=== PATIENT | male | born 1960 | race Asian ===

== ENCOUNTER 2016-12-27 07:04 | Outpatient (CLI) | payer OTHER ==
[~2016-12-27 07:04] MED LIST: AMLODIPINE; ASPIRIN81 M1 PO; BIAXIN500 MG PO; HTN MED?; LIPITOR10 MG PO; NORVASC10 MG PO
== END 2016-12-27 18:05 | disposition home or self-care (01) ==
LOC: MLB 07:04
PROVIDERS: ATTEND Internal Medicine Geriatric Medicine
DX: Z00.00 Encounter for general adult medical examination without abnormal findings (principal)

== ENCOUNTER 2017-05-04 06:23 | Outpatient (CLI) | payer OTHER ==
[~2017-05-04 06:23] MED LIST changes: +AMLO10TA PO; +ASPI81CT89 PO; -ASPIRIN81 M1 PO; +ATOR10TA PO; -BIAXIN500 MG PO; -HTN MED?; -LIPITOR10 MG PO; -NORVASC10 MG PO
[2017-05-04 07:04] LABS: BASOPHILS # (AUTO) 0.2 K/uL (0.00-0.22); EOSINOPHILS # (AUTO) 0.3 K/uL (0-0.4); EOSINOPHILS % (AUTO) 2.8 % (0.0-4.0); HEMOGLOBIN 14.7 g/dL (12.0-18.0); LYMPHOCYTES # (AUTO) 2.5 K/uL (2.0-11.5); LYMPHOCYTES % (AUTO) 20.9 % (20.5-51.1); MEAN CORPUSCULAR HEMOGLOBIN 30 pg (27-31); MEAN CORPUSCULAR HGB CONC 33 g/dL (33-37); MEAN CORPUSCULAR VOLUME 93 fL (80-94); MONOCYTES # (AUTO) 0.7 K/uL (0.8-1.0); MONOCYTES % (AUTO) 5.6 % (1.7-9.3); NEUTROPHILS # (AUTO) 8.2 K/uL (1.8-7.7); NEUTROPHILS % (AUTO) 68.7 % (42.2-75.2); PLATELET COUNT (AUTO) 283 K/uL (140-450); RED BLOOD CELL COUNT(AUTO) 4.85 MIL/uL (4.20-6.10); RED CELL DISTRIBUTION WIDTH 13.9 % (11.6-13.7); WHITE BLOOD COUNT (AUTO) 11.9 K/uL (4.8-10.8)
[2017-05-04 08:05] LABS: ALBUMIN 3.5 g/dL (3.4-5.0); ANION GAP 8.4 (8-16); CALCIUM 8.7 mg/dL (8.5-10.1); CARBON DIOXIDE 29.9 mmol/L (21-32); CHOL/HDL RATIO 3.9 (1-4.5); CREATININE 0.8 mg/dL (0.7-1.3); POTASSIUM 4.3 mmol/L (3.5-5.1); TOTAL BILIRUBIN 0.3 mg/dL (0.0-1.0); TOTAL PROTEIN, SERUM 7.1 g/dL (6.4-8.2)
== END 2017-05-04 20:17 | disposition home or self-care (01) ==
LOC: MLB 06:23
PROVIDERS: ATTEND Internal Medicine Geriatric Medicine
DX: I10 Essential (primary) hypertension (principal); R06.02 Shortness of breath; R63.4 Abnormal weight loss; E78.5 Hyperlipidemia, unspecified
CPT/HCPCS: 36415; 80053; 82306; 85025

== ENCOUNTER 2017-07-25 12:31 | Outpatient (CLI) | payer OTHER ==
[~2017-07-25 12:31] MED LIST changes: -AMLO10TA PO; -ASPI81CT89 PO; +ASPIRIN81 M1 PO; -ATOR10TA PO; +BIAXIN500 MG PO; +HTN MED?; +LIPITOR10 MG PO; +NORVASC10 MG PO
== END 2017-07-25 19:58 | disposition home or self-care (01) ==
LOC: MLB 12:31
PROVIDERS: ATTEND Internal Medicine Pulmonary Disease
DX: R91.8 Other nonspecific abnormal finding of lung field (principal); M54.9 Dorsalgia, unspecified

== ENCOUNTER 2017-10-02 08:43 | Outpatient (CLI) | payer OTHER ==
[~2017-10-02 08:43] MED LIST changes: +AMLO10TA PO; +ASPI81CT89 PO; -ASPIRIN81 M1 PO; +ATOR10TA PO; -BIAXIN500 MG PO; -HTN MED?; -LIPITOR10 MG PO; -NORVASC10 MG PO
[2017-10-02 09:40] LABS: BASOPHILS # (AUTO) 0.3 K/uL (0.00-0.22); BASOPHILS % (AUTO) 3.1 % (0.0-2.0); EOSINOPHILS # (AUTO) 0.3 K/uL (0-0.4); EOSINOPHILS % (AUTO) 3.1 % (0.0-4.0); HEMATOCRIT 45.9 % (36-52); HEMOGLOBIN 15.2 g/dL (12.0-18.0); LYMPHOCYTES # (AUTO) 3.2 K/uL (2.0-11.5); LYMPHOCYTES % (AUTO) 33.8 % (20.5-51.1); MEAN CORPUSCULAR HEMOGLOBIN 31 pg (27-31); MEAN CORPUSCULAR HGB CONC 33 g/dL (33-37); MEAN CORPUSCULAR VOLUME 92 fL (80-94); MONOCYTES # (AUTO) 0.8 K/uL (0.8-1.0); MONOCYTES % (AUTO) 8.6 % (1.7-9.3); NEUTROPHILS # (AUTO) 4.9 K/uL (1.8-7.7); NEUTROPHILS % (AUTO) 51.4 % (42.2-75.2); PLATELET COUNT (AUTO) 263 K/uL (140-450); RED CELL DISTRIBUTION WIDTH 14.1 % (11.6-13.7); WHITE BLOOD COUNT (AUTO) 9.5 K/uL (4.8-10.8)
[2017-10-02 10:14] LABS: ALBUMIN 3.7 g/dL (3.4-5.0); ANION GAP 6.8 (8-16); CARBON DIOXIDE 30.5 mmol/L (21-32); CHOL/HDL RATIO 3.8 (1-4.5); CREATININE 0.9 mg/dL (0.7-1.3); POTASSIUM 4.3 mmol/L (3.5-5.1); TOTAL BILIRUBIN 0.5 mg/dL (0.0-1.0)
== END 2017-10-02 18:56 | disposition home or self-care (01) ==
LOC: MLB 08:43
PROVIDERS: ATTEND Internal Medicine Geriatric Medicine
DX: D72.829 Elevated white blood cell count, unspecified (principal); E11.9 Type 2 diabetes mellitus without complications; E78.5 Hyperlipidemia, unspecified; E55.9 Vitamin D deficiency, unspecified
CPT/HCPCS: 36415; 80053; 85025

== ENCOUNTER 2018-08-12 07:45 | Outpatient (CLI) | payer OTHER ==
[2018-08-12 08:29] LABS: BASOPHILS # (AUTO) 0.1 K/uL (0.00-0.22); BASOPHILS % (AUTO) 0.6 % (0.0-2.0); EOSINOPHILS # (AUTO) 0.2 K/uL (0-0.4); EOSINOPHILS % (AUTO) 2.5 % (0.0-4.0); HEMATOCRIT 44.5 % (36-52); HEMOGLOBIN 14.7 g/dL (12.0-18.0); LYMPHOCYTES # (AUTO) 2.6 K/uL (2.0-11.5); MEAN CORPUSCULAR HEMOGLOBIN 31 pg (27-31); MEAN CORPUSCULAR HGB CONC 33 g/dL (33-37); MEAN CORPUSCULAR VOLUME 93.8 fL (80-94); MONOCYTES # (AUTO) 0.7 K/uL (0.8-1.0); MONOCYTES % (AUTO) 8.1 % (1.7-9.3); NEUTROPHILS # (AUTO) 5.6 K/uL (1.8-7.7); NEUTROPHILS % (AUTO) 60.8 % (42.2-75.2); PLATELET COUNT (AUTO) 280 K/uL (140-450); RED BLOOD CELL COUNT(AUTO) 4.75 MIL/uL (4.20-6.10); RED CELL DISTRIBUTION WIDTH 15.2 % (11.6-13.7); WHITE BLOOD COUNT (AUTO) 9.3 K/uL (4.8-10.8)
[2018-08-12 09:42] LABS: ALBUMIN 3.7 g/dL (3.4-5.0); ANION GAP 7.8 (8-16); CARBON DIOXIDE 29.3 mmol/L (21-32); POTASSIUM 4.1 mmol/L (3.5-5.1); THYROID STIMULATING HORMONE 1.18 uIU/mL (0.34-3.74); TOTAL BILIRUBIN 0.4 mg/dL (0.0-1.0)
== END 2018-08-12 15:51 | disposition home or self-care (01) ==
LOC: MLB 07:45
PROVIDERS: ATTEND Internal Medicine Geriatric Medicine
DX: Z00.01 Encounter for general adult medical examination with abnormal findings (principal); I11.9 Hypertensive heart disease without heart failure; E78.5 Hyperlipidemia, unspecified
CPT/HCPCS: 36415; 80053; 84154; 84443; 85025

== ENCOUNTER 2019-01-14 06:52 | Outpatient (CLI) | payer OTHER ==
[~2019-01-14 06:52] MED LIST changes: +ASPI-1718 PO; -ASPI81CT89 PO
[2019-01-14 08:08] LABS: ALBUMIN 3.6 g/dL (3.4-5.0); ANION GAP 11.2 (8-16); CARBON DIOXIDE 27.4 mmol/L (21-32); CHOL/HDL RATIO 2.9 (1-4.5); CREATININE 0.9 mg/dL (0.7-1.3); POTASSIUM 3.6 mmol/L (3.5-5.1); TOTAL BILIRUBIN 0.2 mg/dL (0.0-1.0)
== END 2019-01-14 19:43 | disposition home or self-care (01) ==
LOC: MLB 06:52
PROVIDERS: ATTEND Internal Medicine Geriatric Medicine
DX: E78.5 Hyperlipidemia, unspecified (principal); I11.9 Hypertensive heart disease without heart failure
CPT/HCPCS: 36415; 80053; 83036

== ENCOUNTER 2019-01-15 07:09 | Emergency (ER) | payer OTHER ==
[~2019-01-15] VITALS: Ht 162.6 cm; Wt 68.0 kg
[2019-01-15 07:23] VITALS: BP 125/76
--- NOTE | 2019-01-15 07:27 | NUR ---
AMBULATED TO ER BED 4
--- NOTE | 2019-01-15 07:30 | NUR ---
PATIENT BIB WITH C/O [facility] SINCE LAST NIGHT X 9 EPISODES WITH COUGH, DENIES ABDOMINAL PAIN, DENIES N/V, PT STATED ATE SOURLY SOUP BEFORE THIS HAPPENED. PMH: MASS IN THE RIGHT UPPER LUNG. PT IS AAOX4 WITH EVEN AND STEADY GAIT; LUNGS CLEAR BL; HR EVEN AND REGULAR; PT DENIES ANY FEVER, CP, SOB AT THIS TIME; SKIN IS PINK/WARM/DRY; VSS; PATIENT POSITIONED FOR COMFORT; HOB ELEVATED; BEDRAILS UP X2; BED DOWN. ER MD MADE AWARE OF PT STATUS.
--- NOTE | 2019-01-15 07:35 | NUR ---
Patient being evaluated by DR. MANCERA at bedside.
[2019-01-15] MEDS ORDERED: NACL 0.9% 1,000 ML IV SCH (07:36)
[2019-01-15] MEDS ORDERED: NACL 0.9% 1,000 ML IV ONE (07:36)
[2019-01-15] MEDS ORDERED: metroNIDAZOLE 500 MG/NS PREMIX 100 ML IV ONE (07:40)
[2019-01-15] MEDS ORDERED: DIPHENOXYLATE /ATROPINE 2.5 MG TAB PO ONE (07:40)
[2019-01-15] MEDS ORDERED: LEVOFLOXACIN 500 MG/D5W PREMIX 100 ML IV ONE (07:40)
--- NOTE | 2019-01-15 08:00 | NUR ---
IV BOLUS STARTED, UA AND STOOL COLLECTED FOR CULTURE ORDERED, PICKED UP BY LAB.
[2019-01-15 08:20] LABS: BASOPHILS # (AUTO) 0.1 K/uL (0.00-0.22); BASOPHILS % (AUTO) 0.7 % (0.0-2.0); EOSINOPHILS # (AUTO) 0.2 K/uL (0-0.4); EOSINOPHILS % (AUTO) 2.2 % (0.0-4.0); HEMATOCRIT 42.2 % (36-52); HEMOGLOBIN 14.3 g/dL (12.0-18.0); LYMPHOCYTES # (AUTO) 2.1 K/uL (2.0-11.5); LYMPHOCYTES % (AUTO) 21.2 % (20.5-51.1); MEAN CORPUSCULAR HEMOGLOBIN 31 pg (27-31); MEAN CORPUSCULAR HGB CONC 34 g/dL (33-37); MONOCYTES # (AUTO) 0.9 K/uL (0.8-1.0); MONOCYTES % (AUTO) 8.6 % (1.7-9.3); NEUTROPHILS # (AUTO) 6.7 K/uL (1.8-7.7); NEUTROPHILS % (AUTO) 67.3 % (42.2-75.2); PLATELET COUNT (AUTO) 266 K/uL (140-450); RED BLOOD CELL COUNT(AUTO) 4.54 MIL/uL (4.20-6.10); RED CELL DISTRIBUTION WIDTH 14.8 % (11.6-13.7)
[2019-01-15 08:23] LABS: BILIRUBIN,URINE NEGATIVE (NEGATIVE); BLOOD, URINE 2+ (NEGATIVE); COLOR,URINE YELLOW (YELLOW); LEUKOCYTE ESTERASE ,URINE NEGATIVE (NEGATIVE); NITRITE, URINE NEGATIVE (NEGATIVE); UGLUCOSE NEGATIVE (NEGATIVE)
[2019-01-15 08:32] LABS: ANION GAP 13.6 (8-16); CARBON DIOXIDE 21.9 mmol/L (21-32); CHLORIDE 108 mmol/L (98-107); CREATININE 0.8 mg/dL (0.7-1.3); GFR ARICAN-AMERICAN 128 mL/min (>90); GLUCOSE 70 mg/dL (74-106); POTASSIUM 3.5 mmol/L (3.5-5.1); SODIUM SERUM 140 mmol/L (136-145); UREA NITROGEN, BLOOD 13 mg/dL (7-18)
[2019-01-15 08:32] LABS: APPEARANCE,URINE CLEAR (CLEAR); WBC,URINE 0 /HPF (0-5)
[2019-01-15 08:38] LABS: ALBUMIN 3.7 g/dL (3.4-5.0); AMYLASE 91 U/L (25-115); ASPARTATE AMINOTRANSFERASE 29 U/L (15-37); LIPASE 525 U/L (73-393); TOTAL BILIRUBIN 0.3 mg/dL (0.0-1.0)
--- NOTE | 2019-01-15 09:00 | NUR ---
IV BOLUS DONE, PT IS RESTING IN BED, NO S/S OF DISTRESS, DENEIS PAIN, VSS.
[2019-01-15 09:26] LABS: ACETONE, SERUM NEGATIVE (NEGATIVE)
[2019-01-15 10:35] VITALS: BP 128/67
--- NOTE | 2019-01-15 10:35 | NUR ---
Patient discharged with v/s stable. Written and verbal after care instructions given and explained. Patient alert, oriented and verbalized understanding of instructions. Ambulatory with steady gait. All questions addressed prior to discharge. ID band removed. IV SITE REMOVED, LAB AND X-RAY RESULT GIVEN, Rx of FLAGYL AND IMODIUM given. Patient educated on indication of medication including possible reaction and side effects. Patient advised to follow up with PMD.
== END 2019-01-15 10:35 | disposition home or self-care (01) ==
LOC: MED 07:09
DX: B34.9 Viral infection, unspecified (principal); I10 Essential (primary) hypertension; F17.200 Nicotine dependence, unspecified, uncomplicated; Z79.82 Long term (current) use of aspirin; Z79.899 Other long term (current) drug therapy
CPT/HCPCS: 36415; 71045; 74018; 80053; 81001; 82009; 82150; 82272; 83605; 83690; 83735; 85025; 87045; 87427; 89055; 96365; 96367; 99284; J1956; J3490; J7030; Q0092

== ENCOUNTER 2019-07-12 07:33 | Outpatient (CLI) | payer OTHER ==
[2019-07-12 08:13] LABS: BASOPHILS # (AUTO) 0.1 K/uL (0.00-0.22); BASOPHILS % (AUTO) 0.6 % (0.0-2.0); EOSINOPHILS # (AUTO) 0.2 K/uL (0-0.4); HEMATOCRIT 46.1 % (36-52); HEMOGLOBIN 15.4 g/dL (12.0-18.0); LYMPHOCYTES # (AUTO) 2.2 K/uL (2.0-11.5); LYMPHOCYTES % (AUTO) 22.5 % (20.5-51.1); MEAN CORPUSCULAR HEMOGLOBIN 32 pg (27-31); MEAN CORPUSCULAR HGB CONC 33 g/dL (33-37); MEAN CORPUSCULAR VOLUME 94.3 fL (80-94); MONOCYTES # (AUTO) 0.7 K/uL (0.8-1.0); MONOCYTES % (AUTO) 7.1 % (1.7-9.3); NEUTROPHILS # (AUTO) 6.7 K/uL (1.8-7.7); NEUTROPHILS % (AUTO) 67.8 % (42.2-75.2); PLATELET COUNT (AUTO) 271 K/uL (140-450); RED BLOOD CELL COUNT(AUTO) 4.89 MIL/uL (4.20-6.10); RED CELL DISTRIBUTION WIDTH 14.9 % (11.6-13.7)
[2019-07-12 08:47] LABS: ALBUMIN 3.9 g/dL (3.4-5.0); ANION GAP 11.8 (8-16); CARBON DIOXIDE 27.6 mmol/L (21-32); CHOL/HDL RATIO 2.9 (1-4.5); CREATININE 0.9 mg/dL (0.7-1.3); POTASSIUM 4.4 mmol/L (3.5-5.1); TOTAL BILIRUBIN 0.3 mg/dL (0.0-1.0)
== END 2019-07-12 20:06 | disposition home or self-care (01) ==
LOC: MLB 07:33
PROVIDERS: ATTEND Internal Medicine Geriatric Medicine
DX: E78.5 Hyperlipidemia, unspecified (principal); I10 Essential (primary) hypertension; E55.9 Vitamin D deficiency, unspecified; R73.03 Prediabetes
CPT/HCPCS: 36415; 80053; 82306; 83036; 85025

== ENCOUNTER 2019-11-15 08:22 | Outpatient (CLI) | payer OTHER ==
[2019-11-15 11:09] LABS: ANION GAP 11.6 (8-16); CARBON DIOXIDE 31.1 mmol/L (21-32); POTASSIUM 3.7 mmol/L (3.5-5.1)
[2019-11-15 11:10] LABS: ALBUMIN 3.9 g/dL (3.4-5.0); CREATININE 0.9 mg/dL (0.7-1.3); TOTAL BILIRUBIN 0.6 mg/dL (0.0-1.0)
[2019-11-15 11:31] LABS: CHOL/HDL RATIO 3.6 (1-4.5)
== END 2019-11-15 20:13 | disposition home or self-care (01) ==
LOC: MLB 08:22
PROVIDERS: ATTEND Internal Medicine Geriatric Medicine
DX: R73.03 Prediabetes (principal); R35.1 Nocturia
CPT/HCPCS: 36415; 80053; 83036

== ENCOUNTER 2020-03-27 06:20 | Outpatient (CLI) | payer OTHER ==
[~2020-03-27 06:20] MED LIST changes: -ASPI-1718 PO; +ASPI-1822 PO
[2020-03-27 08:23] LABS: CARBON DIOXIDE 31.7 mmol/L (21-32); POTASSIUM 3.7 mmol/L (3.5-5.1)
== END 2020-03-27 20:55 | disposition home or self-care (01) ==
LOC: MLB 06:20
PROVIDERS: ATTEND Internal Medicine Geriatric Medicine
DX: R73.9 Hyperglycemia, unspecified (principal)
CPT/HCPCS: 36415; 80048; 82306; 83036